=== PATIENT | female | born 1995 | race Caucasian/White ===

== ENCOUNTER 2018-09-05 08:41 | Emergency (ER) | payer SELFPAY ==
[~2018-09-05] VITALS: Ht 165.1 cm; Wt 67.6 kg
[2018-09-05 09:10] LABS: BASO % 0.2 % (0.0-1.0); EOS # 0.2 10*3/uL (0.0-0.4); HEMATOCRIT 44.2 % (37.0-47.0); HEMOGLOBIN 15.4 g/dl (12.0-16.0); LYMPH # 4.7 10*3/uL (1.3-4.4); LYMPH % 37.9 % (27.0-41.0); MEAN CELL VOLUME 93.1 fl (81.0-99.0); MEAN CORPUSCULAR HGB 32.4 pg (27.0-31.0); MEAN CORPUSCULAR HGB CONC 34.8 g/dl (33.0-37.0); MEAN PLATELET VOLUME 9.9 fl (9.6-12.3); NEUT # 6.3 10*3/uL (2.3-7.9); NEUT % 51.6 % (47.0-73.0); PLATELET COUNT AUTOMATED 345 10*3/uL (130-400); RED BLOOD COUNT 4.75 10*6/uL (4.10-5.10); RED CELL DISTRI WIDTH 12.2 % (0-14.5); WHITE BLOOD COUNT 12.3 10*3/uL (4.8-10.8)
[2018-09-05 09:16] LABS: ALBUMIN 3.5 gm/dl (3.1-4.5); ALKALINE PHOSPHATASE 92 U/L (45-117); BUN 10 mg/dl (7-24); CHLORIDE 106 mmol/L (98-107); CREATININE 0.83 mg/dL (0.55-1.02); SGOT/AST 13 IU/L (3-35); SGPT/ALT 28 U/L (12-78); SODIUM 138 mmol/L (136-145); TOTAL PROTEIN 7.4 gm/dL (6.4-8.2)
[2018-09-05 09:18] LABS: B-hCG (QUALITATIVE) NEGATIVE (NEGATIVE)
== END 2018-09-05 12:05 | disposition short-term general hospital (02) ==
LOC: ED 08:41
PROVIDERS: Emergency Medicine
DX: N13.2 Hydronephrosis with renal and ureteral calculous obstruction (principal)

== ENCOUNTER 2018-12-04 17:25 | Emergency (ER) | payer SELFPAY ==
[~2018-12-04] VITALS: Ht 165.1 cm; Wt 65.8 kg
--- NOTE | ~2018-12-04 | EKG ---
[place], [place] ELECTROCARDIOGRAM REPORT NAME: SANDHYA GOMEZ UNIT #: [id number] ROOM: DOCTOR: EPIPHANY DRAFT REPORT BIRTHDATE: [birth year] [facility] Test Date: 2018-12-04 Test Time: 18:35:46 Pat Name: SANDHYA GOMEZ Department: Room: Gender: F Lan Engineer: : 1995 Requested By: ROSIBEL SABILLON Order Number: [id number] Reading MD: Amadeo Menard MD Measurements Intervals [place] Rate: 80 P: 51 CO: 128 QRS: 71 QRSD: 97 T: 48 QT: 371 QTc: 428 Interpretive Statements Sinus rhythm Electronically Signed On 12-08-2018 9:51:04 PDT by Amadeo Menard MD CM:EKGRPT:ELECTROCARDIOGRAM REPORT [id number] ROSIBEL DUNN DRAFT REPORT ROSIBEL SABILLON DO
[2018-12-04 18:23] LABS: BASO % 0.3 % (0.0-1.0); EOS # 0.2 10*3/uL (0.0-0.4); EOS % 1.9 % (1.0-4.0); HEMATOCRIT 42.3 % (37.0-47.0); HEMOGLOBIN 15.1 g/dl (12.0-16.0); LYMPH # 4.7 10*3/uL (1.3-4.4); LYMPH % 48.7 % (27.0-41.0); MEAN CELL VOLUME 90.4 fl (81.0-99.0); MEAN CORPUSCULAR HGB 32.3 pg (27.0-31.0); MEAN CORPUSCULAR HGB CONC 35.7 g/dl (33.0-37.0); MEAN PLATELET VOLUME 9.6 fl (9.6-12.3); MONO # 0.6 10*3/uL (0.1-1.0); MONO % 6.5 % (3.0-9.0); NEUT # 4.1 10*3/uL (2.3-7.9); NEUT % 42.3 % (47.0-73.0); PLATELET COUNT AUTOMATED 324 10*3/uL (130-400); RED BLOOD COUNT 4.68 10*6/uL (4.10-5.10); WHITE BLOOD COUNT 9.7 10*3/uL (4.8-10.8)
[2018-12-04 18:24] LABS: BILIRUBIN NEGATIVE (NEGATIVE); BLOOD 2+ (NEGATIVE); CLARITY CLEAR (CLEAR); COLOR YELLOW (YELLOW); GLUCOSE TRACE (NEGATIVE); KETONE NEGATIVE (NEGATIVE); LEUKO ESTERASE NEGATIVE (NEGATIVE); NITRITE NEGATIVE (NEGATIVE); SPECIFIC GRAVITY 1.015 (1.005-1.030); UROBILINOGEN 0.2 E.U./dl (0.2-1.0)
[2018-12-04 18:32] LABS: BACTERIA 1+; RBC 0-2 rbc/hpf (0-2)
[2018-12-04 18:37] LABS: ALBUMIN 3.8 gm/dl (3.1-4.5); ALKALINE PHOSPHATASE 79 U/L (45-117); BUN 9 mg/dl (7-24); CHLORIDE 104 mmol/L (98-107); CREATININE 0.65 mg/dL (0.55-1.02); LIPASE 94 U/L (73-393); POTASSIUM 3.8 mmol/L (3.5-5.1); SGOT/AST 11 IU/L (3-35); SGPT/ALT 28 U/L (12-78); SODIUM 137 mmol/L (136-145); TOTAL PROTEIN 7.6 gm/dL (6.4-8.2)
[2018-12-04 18:39] LABS: TROPONIN I < 0.015 ng/ml (<0.045)
== END 2018-12-04 20:45 | disposition left against medical advice (07) ==
LOC: ED 17:25
PROVIDERS: Family Medicine
DX: R07.9 Chest pain, unspecified (principal); N23 Unspecified renal colic; F17.200 Nicotine dependence, unspecified, uncomplicated; Z87.442 Personal history of urinary calculi

== ENCOUNTER 2019-05-28 23:20 | Emergency (ER) | payer OTHER ==
[~2019-05-28] VITALS: Ht 162.5 cm; Wt 68.0 kg
[2019-05-29] MEDS ORDERED: Motrin,Rufen800 MG PO (01:37)
[2019-05-29] MEDS ORDERED: CYCLOBENZAPRINE5 M3 PO (01:37)
== END 2019-05-29 02:16 | disposition home or self-care (01) ==
LOC: ED 23:20
DX: S16.1XXA Strain of muscle, fascia and tendon at neck level, initial encounter (principal); R51 Headache; F17.200 Nicotine dependence, unspecified, uncomplicated; V49.9XXA Car occupant (driver) (passenger) injured in unspecified traffic accident, initial encounter; Y93.89 Activity, other specified; Y92.89 Other specified places as the place of occurrence of the external cause; Y99.8 Other external cause status

== ENCOUNTER 2019-07-17 14:41 | Emergency (ER) | payer SELFPAY ==
[~2019-07-17] VITALS: Ht 165.1 cm; Wt 69.4 kg
[~2019-07-17 14:41] MED LIST: CYCLOBENZAPRINE5 M3 PO; Motrin,Rufen800 MG PO
[2019-07-17] MEDS ORDERED: OCUFLOX 0.3% 5 M5 ML OPH (15:14)
== END 2019-07-17 15:22 | disposition home or self-care (01) ==
LOC: ED 14:41
DX: S05.01XA Injury of conjunctiva and corneal abrasion without foreign body, right eye, initial encounter (principal); F17.200 Nicotine dependence, unspecified, uncomplicated; Z87.442 Personal history of urinary calculi; Z79.899 Other long term (current) drug therapy; W54.1XXA Struck by dog, initial encounter; Y93.89 Activity, other specified; Y92.098 Other place in other non-institutional residence as the place of occurrence of the external cause; Y99.8 Other external cause status